=== PATIENT | male | born 1965 | race Caucasian/White ===

== ENCOUNTER 2019-06-16 06:31 | Day surgery (SDC) | payer BC ==
[2019-06-11 11:08] LABS: Absolute Lymphocytes (CBC) 1.4 K/uL (0.7-4.9); Basophils % 0.2 % (0-1.3); Hematocrit 53.7 % (39.6-49.0); Lymphocytes % 13.1 % (15.3-44.8); MPV 10.5 fL (7.6-11.3); RBC Red Blood Cell Count 5.62 M/uL (4.33-5.43)
--- NOTE | 2019-06-11 11:10 | RAD REPORT ---
EXAM DESCRIPTION: RAD - Chest Pa And Lat (2 Views) - 06/11/2019 10:56 am CLINICAL HISTORY: pre-op for surgery Chest pain. COMPARISON: No comparisons FINDINGS: The lungs are clear. The heart is normal in size. No displaced fractures. IMPRESSION: No acute or concerning finding suspected.
[2019-06-11 11:16] LABS: Potassium 4.3 mmol/L (3.5-5.1)
--- NOTE | 2019-06-11 11:41 | EKG ---
Test Date: 2019-06-11 Test Time: 10:30:44 Teaching Dietitian: JES MEASUREMENT RESULTS: Intervals: Rate: 54 HI: 176 QRSD: 92 QT: 420 QTc: 398 [place]: P: 28 HI: 176 QRS: 38 T: 5 INTERPRETIVE STATEMENTS: Sinus bradycardia Otherwise normal ECG No previous ECG available for comparison Electronically Signed On 06-11-19 11:40:36 CHARTER COACH DRIVER by Nathan Baugh
--- NOTE | 2019-06-12 12:32 | PREOPHP ---
Date of Admission: 06/11/2019 History Of Present Illness: This patient presented to my office with a chief complaint of a painful fifth toe on the left foot, present for months, worse with activity,, relieved by rest, sore and thro bbing in nature, moderate in severity. The patient has modified his shoe gear all to no a vail and requests evaluation. Past Medical History: Unremarkable. Allergies: NKDA. Current Medications: Include diazepam 10 mg as needed. Social History: Patient denies cigarettes, IV drug use, and is a social beer drinker. Surgical History: Includes hammertoe correction to the fifth toe of the right foot. Family History: Unremarkable. The patient's weight is 239 pounds, height 6 feet 3 inches. Physical Examination: General Appearance: The patient is healthy, well developed, well nourished, well oriented x3. Vascular: Evaluation reveals dorsalis pedis and posterior tibial pulses to be 4/4 bilaterally. Capi llary refill time is less than 3 seconds. Temperature gradient is within normal limits. There are n o varicosities or signs of DVT present. Musculoskeletal: Evaluation reveals a cavus foot type bilaterally. Subtalar joint is normal positio n bilaterally. There is a forefoot supinatus bilaterally. Medial tarsometatarsal joints are deforme d, but not tender on palpation, dorsally on the right foot, at the base of the first, second, third m etatarsocuneiform joints. There is noted to be 5 degrees bilaterally per goniometer manag ement. The muscle knee and ankle assessment are within normal limits with normal range of motion. T he fifth toe to the left foot is noted to be in contracted at the PIPJ with an adductovarus deformity . Skin: Evaluation reveals no rash, ulcer, tumor, or contracture. Neurologic: Evaluation reveals deep tendon reflexes for the patellar and Achilles to be 5/5 bilatera lly. Vibratory and sharp and dull sensations within normal limits. X-ray evaluation reveals no fracture, tumor, or DJD. Bones are well mineralized, and there is an add uctovarus deformity of the fifth toe on the left foot. Diagnosis: Hammertoe deformity, left foot; and pain in the toes, left foot. Recommended procedure is for an arthroplasty, fifth digit, left foot. The patient requests surgical management due to the failure of conservative care. Risks, benefits, and alternatives were discussed with the patient including, but not limited to the risk of pain, swelling, numbness, stiffness, infe ction, nonhealing of skin or bone, recurrence of the deformity and pain. The patient understands tristian atment alternatives and wishes to progress to surgery. High risk of DVT and PE have been discussed w ith the patient along with their signs and symptoms. A surgery is scheduled for June 16 at [facility]. Medical H and P will be finished by Anesthesia. Lab work has been ordered. KRYSTIN Voice ID: [id number]
[2019-06-16] MEDS ORDERED: Ringers Lactate 1,000 ML IV ONE (07:00)
[2019-06-16] MEDS ORDERED: propofoL 200 MG/20 ML VIAL IV ONE (07:09)
[2019-06-16] MEDS ORDERED: MIDAZOLAM HCL 2 MG/2 ML INJ ONE ×2 (07:10→08:02)
[2019-06-16] MEDS ORDERED: FENTANYL CITR 100 MCG/2 ML ONE (07:10)
[2019-06-16] MEDS ORDERED: LIDOCAINE 2% MPF 5 ML VIAL ONE (07:10)
[2019-06-16] MEDS ORDERED: ONDANSETRON 4 MG/2 ML VIAL ONE (07:12)
[2019-06-16] MEDS ORDERED: LIDOCAINE 1% MPF 30 ML VIAL ONE (07:14)
[2019-06-16 10:51] VITALS: BP 120/85; TEMP 98; O2SAT 94
--- NOTE | 2019-06-16 10:54 | RAD REPORT ---
EXAM DESCRIPTION: RAD - Foot Left 3 View - 06/16/2019 9:06 am CLINICAL HISTORY: Postsurgical examination, bone resection COMPARISON: None. FINDINGS: The fifth proximal phalanx head has been resected. Middle and distal phalanges are normal. There is a slight lateral subluxation of the middle and distal fifth phalanges relative to typical p ositioning. The first- fourth phalanges and all metatarsals show no suspicious finding. Patient has spurring at t he Achilles attachment. No foreign body. Delete select IMPRESSION: Postsurgical changes to the left fifth toe as detailed.
--- NOTE | 2019-06-16 19:02 | OP ---
Date of Procedure: 06/16/2019 Surgeon: Jass Valentin DPM Date Of Surgery: 06/16/2019. Surgeon: Jass Valentin DPM Preoperative Diagnosis: Hammertoe deformity, fifth digit, left foot. Postoperative Diagnosis: Hammertoe deformity, fifth digit, left foot. Procedure: Arthroplasty of fifth digit, left foot. Anesthesia: Via local infiltration. Patient tolerated the procedure and anesthesia well and was sent to recovery in satisfactory conditio n. We discharged home per anesthesia guidelines. Patient will resume normal diet. Ambulate in a po stop shoe. He has been given written postop instructions in the written form with emergency phone sandi oneal. The patient will be seen in my office for postoperative care 1 week. MADYSON/STEFANO Voice ID: [id number] Report ID: [id number]
--- NOTE | 2019-06-16 19:02 | OP ---
Date of Procedure: 06/16/2019 Surgeon: Jass Valentin DPM Preoperative Diagnosis: Hammertoe deformity, fifth digit, left foot. Postoperative Diagnosis: Hammertoe deformity, fifth digit, left foot. Procedure: Arthroplasty of fifth digit, left foot. Anesthesia: Local with 5 mL of 0.5% Marcaine plain. Description Of Procedure: The patient was brought into the operating room, placed on the operating t able in supine position. Once adequate IV sedation was obtained, the patient was injected with a tot al of 5 mL of 0.5% Marcaine plain. The patient was prepped and draped in the usual sterile manner an d the left extremity was elevated to 60 degree superior for a period of 3 minutes to exsanguinate the blood supply. Pneumatic ankle tourniquet was elevated to 250 mmHg. Attention was then directed to the fifth toe of left foot where 2 semi-elliptical converging incisions were made from distal medial to proximal lateral and wedge of skin was removed. The incision was deepened down to the level of th e extensor digitorum longus tendon, which was transversely incised. All neurologic structures were a voided. All bleeders were clamped and bovied. The medial and lateral collateral ligaments were then incised with a 15-blade and the extensor digitorum longus tendon was freed using a 15-blade off its attachment from the proximal phalanx to the level of the MPJ. Utilizing a double-action bone cutter, the head of the proximal phalanx was then cut transversely. All rough edges were smoothed utilizing a rasp. There was flushed copious amounts of sterile saline. The extensor digitorum longus tendon was then reapproximated with the toe held in a derotated fashion with 3-0 Vicryl suture. Skin was re approximated utilizing 4-0 Prolene horizontal mattress suture with the toe held in a derotated fashio n. The toe was dressed with Adaptic, dry sterile gauze, dry sterile Viet, and Feng bandage and Coban . Pneumatic ankle tourniquet was deflated and capillary return was seen to be instantaneous to all d igits of the patient. The patient was sent to recovery in satisfactory condition and will be discharged per anesthesia guidelines. MADYSON/STEFANO Voice ID: [id number] Report ID: [id number]
== END 2019-06-16 09:31 | disposition home or self-care (01) ==
LOC: OR 06:31
PROVIDERS: ATTEND Podiatrist
PROC: 0SRQ0JZ Replacement of Left Toe Phalangeal Joint with Synthetic Substitute, Open Approach (ICD-10-PCS; principal; 2019-06-16 07:30)
DX: M20.42 Other hammer toe(s) (acquired), left foot (principal)
CPT/HCPCS: 93005; 85025; 80048; 36415; 71046; 73630; 28285; J2250 ×2; J3010; J7120; J2405; J2704